=== PATIENT | female | born 2005 | race Caucasian/White ===

== ENCOUNTER 2024-01-20 23:36 | Emergency (ER) | payer MEDICAID ==
[2024-01-20] MEDS ORDERED: diphenhydrAMINE 50 MG Cap PO ONE (23:39)
[2024-01-21] MEDS: Famotidine 20 MG Tab PO ONE (00:05)
[2024-01-21] MEDS: predniSONE 20 MG Tab PO ONE (00:05)
[2024-01-21] MEDS: diphenhydrAMINE 50 MG/ML SDV IM ONE (00:06)
== END 2024-01-21 00:46 | disposition home or self-care (01) ==
LOC: FB.ED 23:36
DX: L50.0 Allergic urticaria (principal); F41.9 Anxiety disorder, unspecified; F17.200 Nicotine dependence, unspecified, uncomplicated; Z88.0 Allergy status to penicillin; Z91.018 Allergy to other foods; Z79.51 Long term (current) use of inhaled steroids; Z79.899 Other long term (current) drug therapy
CPT/HCPCS: 96372; 99283; A9270; J1200; J7512